=== PATIENT | female | born 1985 | race Caucasian/White ===

== ENCOUNTER 2017-03-01 07:41 | Observation (INO) | payer BC ==
[~2017-03-01 07:41] MED LIST: BUPIVACAINE 0.25% W/ EPI - 10 ML VIAL ONE; LIDOCAINE HCL 2 % 10 ML JELLY URO-JECT TOPICAL ONE; LIDOCAINE W/ SODIUM BICARB 0.5 ML SYR ONE; Lactated Ringers 1,000 ML PRIMARY IV ONE; Sodium Chloride 0.9% 100 ML IV ONE
[2017-03-01 08:00] LABS: BILIRUBIN,URINE NEGATIVE (NEG); CLARITY,URINE CLEAR (CLEAR); COLOR,URINE YELLOW; GLUCOSE, URINE (UA) NEGATIVE (NEG); NITRATE,URINE NEGATIVE (NEG); OCCULT BLOOD,URINE NEGATIVE (NEG); PH,URINE 5.5 (5.0-8.5); PROTEIN,URINE NEGATIVE (NEG); UROBILINOGEN,URINE 0.2 EU/dL (0.2)
[2017-03-01 08:02] LABS: URINE SAMPLE TYPE CLEAN CATCH URINE
[2017-03-01 08:11] LABS: URINE SPECIFIC GRAVITY - MAN 1.015
[2017-03-01 08:19] LABS: HEMATOCRIT 44.9 % (37.0-47.0); HEMOGLOBIN 16.3 g/dL (12.0-16.0); MEAN CORPUSCULAR HEMOGLOBIN 32.7 PG (27-31); MEAN CORPUSCULAR HGB CONC 36.3 g/dL (33-37); MEAN CORPUSCULAR VOLUME 90.2 FL (81-99); MEAN PLATELET VOLUME 8.7 FL (7.4-12.2); RED BLOOD COUNT 4.98 10^6/uL (4.20-5.40)
[2017-03-01 08:31] LABS: BLOOD UREA NITROGEN 15 mg/dL (7-22); BUN/CREATININE RATIO 16.66 (6-20); CALCIUM 9.5 mg/dL (8.7-10.7); EST GLOMERULAR FILTRATION > 60 (>60 ml/min/1.73m(2))
[2017-03-01] MEDS ORDERED: ROCURONIUM 10 MG/1 ML - 5 ML VIAL IVP ONE ×2 (09:11→10:26)
[2017-03-01] MEDS ORDERED: fentaNYL Inj 250 MCG/5 ML VIAL ONE (09:11)
[2017-03-01] MEDS ORDERED: MIDAZOLAM 5 MG/1 ML ONE (09:11)
[2017-03-01] MEDS ORDERED: LIDOCAINE MPF 2% - 5 ML (20 MG/1 ML) ONE (09:11)
[2017-03-01] MEDS ORDERED: ePHEDrine Inj 50 MG/ML AMP ONE (09:59)
[2017-03-01] MEDS ORDERED: HYDROmorphone 2 MG/1 ML ONE (10:20)
[2017-03-01] MEDS ORDERED: KETAMINE 100 MG/1 ML - 5 ML ONE (10:20)
[2017-03-01] MEDS ORDERED: Lactated Ringers 1,000 ML PRIMARY IV ONE (10:33)
[2017-03-01] MEDS ORDERED: Opium-Belladonna 60-16.2mg 1 EACH SUPP.RECT RECTAL ONE (10:55)
[2017-03-01] MEDS ORDERED: SUGAMMADEX SODIUM 200 MG/2 ML VIAL IV ONE (11:35)
[2017-03-01] MEDS ORDERED: ONDANSETRON 4 MG/2 ML VIAL ONE (11:38)
[2017-03-01] MEDS ORDERED: KETOROLAC 30 MG/1 ML VIAL ONE (11:38)
[2017-03-01] MEDS ORDERED: NORMAL SALINE 10 ML SYRINGE FLUSH IVP PRN ×2 (12:18→13:09)
[2017-03-01] MEDS ORDERED: HYDROmorphone 2 MG/1 ML IVP PRN (12:18)
[2017-03-01] MEDS ORDERED: fentaNYL Inj 100 MCG/2 ML VIAL IVP PRN (12:18)
[2017-03-01] MEDS ORDERED: ONDANSETRON 4 MG/2 ML VIAL IVP PRN (12:18)
[2017-03-01] MEDS ORDERED: Lactated Ringers 1,000 ML PRIMARY IV SCH ×2 (12:30→13:09)
--- NOTE | 2017-03-01 12:31 | OB.OP.NOTE ---
Operative Report Surgeon: Mason Manager Rn: Brett Wilkins MD Anesthesia Type: General Anesthesia Provider: Fito Finney CRNA Surgery Date: 03/01/17 Preoperative Diagnosis: Right ovarian complex cyst. Chronic pelvic pain. Menorrhagia. Dysmenorrhea. Persistent abnormal Pap smears and human papilloma virus. Patient desires definitive management with hysterectomy, bilateral salpingectomy, right oophorectomy and IUD removal Postoperative Diagnosis: Same Procedure: Robotic-assisted laparoscopic hysterectomy, bilateral salpingectomy, right oophorectomy, postoperative cystoscopy. IUD removal before hysterectomy Estimated Blood Loss (mL): 50 Fluids: 2600 LR. 50 mL EBL. 125 mL urine Complications: None apparent Findings at Surgery: Right ovarian complex cyst Normal appearing uterus but perhaps slightly boggy i.e. adenomyosis a possibility At the end of the surgery, the vaginal cuff appeared hemostatic, the right IP appeared hemostatic. Good spill from both ureteral orifices with cystoscopy and bladder appeared intact with cystoscopy During the surgery, there was no time when I thought that I was near the bowel to injure the bowel or the bladder. Indications for the Procedure: The patient is a 31-year-old with chronic right lower quadrant pelvic pain since May 2016 when she was diagnosed with a right ovarian simple cyst. Patient was then found to have a right ovarian complex cyst in January 2017. The patient continued to have significant pain on her right side. The patient also has a history of menorrhagia and dysmenorrhea and currently had an IUD in place and the patient also had cryotherapy for cervical dysplasia 2 years ago with a normal Pap smear last year but this year she had a negative Pap smear but positive HPV but negative HPV 16 and 18. Therefore, with the patient's persistent right lower quadrant pain and chronic pelvic pain since May 2016, the right ovarian complex cyst or mass, menorrhagia, dysmenorrhea, and persistent cervical dysplasia, the patient desired definitive management with a hysterectomy as well as a bilateral salpingectomy and a right oophorectomy. Description of Procedure: The patient was taken to the operating room after risks, benefits, alternatives and indication were discussed with the patient in detail. Consent forms have been signed previously. The patient underwent general endotracheal anesthesia without complication. The patient was placed in the dorsal lithotomy position in [facility]. The patient was prepped and draped sterilely. A timeout was completed and the patient and procedures were identified correctly. Attention was turned to the patient's perineum. I placed a Morley catheter in the patient's urethra and the Morley catheter drained clear yellow urine. I placed a weighted speculum in the patient's posterior vagina and a Derry anteriorly and the cervix was visualized. A single-tooth tenaculum was placed on the anterior lip of the cervix. I then sounded the patient's uterus and it was 9-1/2 cm. I used an 8 cm tip for the Dona uterine manipulator and a medium collar for the Fanny ring. The uterine manipulator was then placed around the patient's cervix with the tip inside the uterus and the balloon was insufflated with room air. Gloves and gowns were changed. Attention was then turned to the patient's abdomen. Because of the distance between the umbilicus and the pelvis and symphysis pubis, I decided that a supra umbilical incision would be made and 1/4 percent Marcaine with epinephrine was injected supraumbilically. The patient had previously had an abdominoplasty so there was an incision circumferentially around the umbilicus. I made my incision supraumbilically over the old scar site. Using the 10 mm trocar with the Visiport, we directly enter the patient's abdomen and then insufflated CO2 gas. The trocar was removed and the scope was placed back in and we were intra-abdominal. There did not appear to be any bowel adhesions around the umbilicus. We later looked with the scope in the lateral port and there were no bowel adhesions noted around the umbilicus or to the anterior abdominal wall at any place. The location for the right lateral port was then decided and one fourth percent Marcaine was injected and then a skin incision was made with a less than a centimeter and then under direct visualization the trocar and sleeve were introduced into the abdomen and the trocar was removed and the sleeve was left in place. The location for the left lateral port was then decided upon and 1/4% Marcaine was injected and then the skin incision was made with less than a centimeter incision and then under direct visualization the trocar and sleeve were introduced into the abdomen and the trocar was removed and the sleeve was left in place. The robot was then brought over to the field in a sterile fashion. The camera arm was hooked up to the supraumbilical port and #1 arm was hooked up to the right lateral and upper to arm was hooked up to the left lateral port. With the robot set up, I took off my gown and glove and went over the console. Photographs of the patient uterus and right ovary with a complex cyst and left ovary were taken. I then had my nurse orthodontic technician assistant place the vessel sealer #1 and gyrus bipolar and # 2 and I used the vessel sealer to ligate the right IP for the right oophorectomy and salpingectomy. I continued after the ligation of the right IP ligament to the right round ligament and used the vessel sealer to ligate the round ligament. I then used the vessel sealer to continue to dissect out the uterine vessels on the right side of the uterus and cervix. The vessels were skeletonized and bovied with the vessel sealer. A bladder flap was then created the patient's right side. I then switched sides and completed a left salpingectomy leaving the left ovary intact. After the left salpingectomy, the left round ligament was ligated using the vessel sealer. Then the uterine vessels on the left side of the uterus and cervix were skeletonized and ligated the vessel sealer. The vessel sealer was removed and in #1 port the monopolar scissors were placed and an #2 port the bipolar gyrus was placed. A bladder flap was created using the monopolar scissors and the bipolar gyrus. More the vessels on the right side and left side were skeletonized and bovied. I then started my vaginal incision at 12:00 keeping in mind were the Fanny ring was from the uterine manipulator. I made my vaginal incision and then I was able to visualize the Fanny ring. And then I continued my incision circumferentially until I had the incision completed 360. The hysterectomy, bilateral salpingectomy and right oophorectomy were then completed. The uterus was removed through the vaginal incision through the vagina and would be sent to pathology. I then had the suction care rep placed in port #1 and I suctioned any blood and then irrigated copiously. I then suction the fluid again. There was a bleeder on the vaginal cuff on the right side. At that point, I asked my TRAY SERVICE WORKER partner-Dr. Wilkins-to examine the vaginal cuff at the console and to allow for hemostasis. The bleeder was located and bovied. There appeared to be good hemostasis of the vaginal cuff. The vaginal cuff was then closed using 0-V lock suture starting on the patient's left side of the vaginal cuff and working to the right side. After the right angle was closed, the V lock suture was then brought back medially with 2 sutures to allow for good closure of the vaginal cuff. There was also good hemostasis. The vaginal cuff was irrigated and suctioned. The vaginal cuff was examined and there was good hemostasis. The right IP was examined and there was good hemostasis. Along the left side and left ovary was examined again and there was good hemostasis. The vaginal cuff was examined again and there was good hemostasis. The needle from the V lock suture was placed in the peritoneum to be removed later. All instruments were removed from the robotic arms. The robot was removed from the patient's operative table. A scope was placed in the lateral port and a grasper was placed in the supraumbilical port and the needle from the V lock suture was identified and removed under direct visualization. Additionally, the scope was placed in the lateral port and the supraumbilical worksite was examined. There were no bowel adhesions near the umbilicus. Actually, there were no bowel adhesions to the anterior abdominal wall anywhere. The vaginal cuff was examined again and there was good hemostasis. There was no bleeding. There were no hematomas. The procedure was completed. The scope and instruments were removed. The 3 ports sleeves were removed after CO2 gas was allowed to escape out of the abdomen. The supraumbilical incision site was first examined and 0 Vicryl suture on a UR 6 needle was used and John clamps using S clamps to view the fascia used to grasp the fascia and then the 0 Vicryl suture on a UR 6 needle was placed in a [id number] suture through the fascia anterior posterior 2 and then tied off. There appeared to be a good closure. 4-0 Monocryl suture was then used to close the subcutaneous areas of all 3 small laparoscopic sites and then 3-0 Stratafix suture was used to close all 3 laparoscopic sites. A cystoscopy was completed and both ureteral orifices were visualized. Indigo carmine is not available currently since it is not being manufactured currently. Therefore the ureteral jet was looked for and seen from both the right and left ureteral orifice. There was also a good bubble visualized in the bladder dome. Therefore the bladder was intact and both ureters appeared intact. A B&O suppository was placed in the patient's rectum. Steri-Strips and then dressings were placed over the 3 laparoscopic incision sites previously. The patient was awakened from her general endotracheal anesthesia and brought to the PACU in stable condition Sponge lap and needle counts were correct 2. Plan: 23 hour observation will be completed since the patient lives in [place], [place]. The patient will be observed on the [facility] floor.
[2017-03-01] MEDS ORDERED: Ondansetron ODT Tab 8 MG TAB PO PRN (13:09)
[2017-03-01] MEDS ORDERED: IBUPROFEN 800 MG TABLET PO PRN (13:09)
[2017-03-01] MEDS ORDERED: Lactated Ringers 2,000 ML PRIMARY IV ONE (13:31)
[2017-03-01] MEDS: KETOROLAC 15 MG/1 ML VIAL IVP PRN ×2 (15:00→23:14)
[2017-03-01] MEDS: HYDROcodone-APAP 5 MG -325 MG TABLET PO PRN ×2 (15:38→19:47)
[2017-03-01] MEDS ORDERED: fentaNYL Inj 250 MCG/5 ML VIAL IVP ONE (18:59)
[2017-03-01] MEDS: Promethazine Tab 25 MG TAB PO PRN (19:47)
--- NOTE | 2017-03-01 21:23 | PDOC(PROG) ---
Subjective Post Op Day: 0 Pain Management: PO (And IV) Morley Catheter: No Flatus: No Diet: Clear Liquids (Advancing as tolerated) Ambulating: Yes Concerns / Additional Information: The patient has been ambulating to the restroom. The patient does have some abdominal pain and had increased pain and received fentanyl 100 g IV. The patient is doing better now. The patient does tolerate hydrocodone better than oxycodone. The patient states that the pain from the hysterectomy is much more than when she had her cholecystectomy but much less than when she had her abdominoplasty. The patient wanted to take her home medications. 2 antidepressants and her levothyroxine. Objective - General General Appearance: POSITIVE: No Acute Distress, Cooperative (The patient is comfortable now that she received her narcotic medications for pain control.) - Abdomen Bowel Sounds: Present Abdominal Wound Assessment: Well Approximated (Dressings applied) Other Abdominal Exam Details: Abdomen is soft without guarding or rebound. Negative heel tap. Diffuse tenderness which is appropriate secondary to just having a robotic-assisted laparoscopic hysterectomy, bilateral salpingectomy, right oophorectomy. Assesstment / Plan Assessment / Plan: Postoperative day #0 status post robotic-assisted laparoscopic hysterectomy, bilateral salpingectomy, right oophorectomy and IUD removal and cystoscopy. The patient's vital signs are normal. No tachycardia. No acute abdomen by exam nor by looking at the patient. Plan: I increased the hydrocodone to 7.5 mg per tablet from the 5 mg per tablet. 1-2 tablets every 4 hours when necessary pain I encouraged the patient to take promethazine 25 mg by mouth every 6 hours for nausea with the medication but also this may help her symptoms and help her rest. The patient may take her medications from home. I will see the patient in the morning.
[2017-03-01] MEDS ORDERED: ABILIFY 2 MG PO SCH (21:30)
[2017-03-01] MEDS ORDERED: ESCITALOPRAM 10 MG TABLET PO SCH (21:30)
[2017-03-01] MEDS: HYDROcodone-APAP 7.5 MG-325 MG TABLET PO PRN (23:14)
[2017-03-02] MEDS: Promethazine Tab 25 MG TAB PO PRN (01:42)
[2017-03-02] MEDS: HYDROcodone-APAP 7.5 MG-325 MG TABLET PO PRN ×2 (03:35→07:32)
[2017-03-02 04:27] LABS: BASOPHILS # (AUTO) 0.02 10*3/UL; BASOPHILS % (AUTO) 0.2 % (0-1); EOSINOPHILS # (AUTO) 0.16 10*3/UL; EOSINOPHILS % (AUTO) 1.6 % (0-8); HEMATOCRIT 37.5 % (37.0-47.0); HEMOGLOBIN 12.9 g/dL (12.0-16.0); LYMPHOCYTES # (AUTO) 1.55 10*3/uL; MEAN CORPUSCULAR HEMOGLOBIN 31.8 PG (27-31); MEAN CORPUSCULAR HGB CONC 34.4 g/dL (33-37); MEAN CORPUSCULAR VOLUME 92.4 FL (81-99); MONOCYTES # (AUTO) 0.46 10*3/UL (0.3-0.8); MONOCYTES % (AUTO) 4.7 % (5-15); NEUTROPHILS # (AUTO) 7.66 10*3/UL; NEUTROPHILS % (AUTO) 77.6 % (50-80); RED BLOOD COUNT 4.06 10^6/uL (4.20-5.40)
[2017-03-02 04:35] LABS: PLATELET MORPHOLOGY COMMENT NORMAL MORPHOLOGY (NORM); RBC MORPHOLOGY COMMENT NORMAL MORPHOLOGY (NORM); WBC MORPHOLOGY COMMENT NORMAL MORPHOLOGY (NORM)
[2017-03-02 04:38] LABS: BLOOD UREA NITROGEN 8 mg/dL (7-22); CALCIUM 8.4 mg/dL (8.7-10.7); EST GLOMERULAR FILTRATION > 60 (>60 ml/min/1.73m(2))
[2017-03-02] MEDS: KETOROLAC 15 MG/1 ML VIAL IVP PRN (05:10)
[2017-03-02] MEDS ORDERED: LEVOTHYROXINE 75 MCG TABLET PO SCH (05:30)
[2017-03-02 08:13] VITALS: RESP 16; TEMP 98.1
--- NOTE | 2017-03-02 08:31 | PDOC(PROG) ---
Subjective Post Op Day: 1 Pain Management: PO (And IV Toradol) Morley Catheter: No Flatus: Yes Diet: Regular Ambulating: Yes Concerns / Additional Information: The patient is still having some pain. The patient stated that her oxycodone 7- 1/2 mg gave her good pain relief for 2 hours but then she had some pain. Her pain is much better now that was overnight. Positive flatus, patient is ambulating to the restroom. patient would like to go home Objective - General General Appearance: POSITIVE: No Acute Distress, Cooperative - Cardiovacular Cardiovascular Exam: POSITIVE: RRR Edema: No Pedal Edema Extremities: Negative Eladio's - Bilaterally - Respiratory Respiratory Exam: POSITIVE: Clear to Auscultation - Bilaterally - Abdomen Bowel Sounds: Present (All 4 quadrants) Abdominal Wound Assessment: Well Approximated (Dressings applied.) Other Abdominal Exam Details: Soft, no guarding or rebound. Appropriately tender. Negative heel tap Assesstment / Plan Assessment / Plan: Assessment: Postoperative day #1 status post robotic-assisted laparoscopic hysterectomy, bilateral salpingectomy, right oophorectomy, IUD removal, and cystoscopy. The patient's H&H had an appropriate drop and his 12 and 37 this morning. Creatinine was 0.8. The patient's vital signs are normal. Afebrile and normal pulses. Normal blood pressure. The patient has an abdominal exam consistent with just having the surgery listed above. Plan: Discharge home Ibuprofen 200 mg liquid capsules-4 capsules by mouth 3 times a day 5 days with food or milk then as needed Colace as needed. Patient has IBS and often has loose stools. Hydrocodone/Tylenol 7.5/325 one to 2 tablets every 4 hours initially today and then 1-2 tablets every 6-8 hours as needed. Pelvic rest-no vaginal intercourse-for 10 weeks The patient should follow-up with me next week. 03/06/2017 at 10:00 in the morning The patient should be given the usual postoperative instructions. The patient should go to the emergency room for fever, increasing abdominal pain that is not resolving, wound drainage, or not feeling well. The patient may resume her usual home medications at her discretion- Viberzi should be held currently secondary to the hydrocodone use.
== END 2017-03-02 09:41 | disposition home or self-care (01) ==
LOC: SDSC 07:41 → MED/SURG 13:02
PROVIDERS: ADMIT Obstetrics & Gynecology; ATTEND Obstetrics & Gynecology
DX: N83.201 Unspecified ovarian cyst, right side (principal); N92.0 Excessive and frequent menstruation with regular cycle; N94.6 Dysmenorrhea, unspecified
CPT/HCPCS: 36415; 52000; 58301; 58552; 80048 ×2; 81003; 84703; 85025; 85027; 96374; J0694; J1885; J2704; J3010 ×2; Q0169 ×2; J1170; J2001; J2250; J2405; J7050; J7120

== ENCOUNTER 2017-03-05 13:03 | Observation (INO) | payer BC ==
--- NOTE | 2017-03-05 15:08 | DI ---
CT ABD W/WO CN AND PELVIS W/W0,03/05/2017 1:06 PM: Clinical History: Postoperative abdominal pain Previous Exam: None at this facility. Findings: Multiple helically acquired CT images are obtained through the abdomen and pelvis following the intra venous administration of 75 cc of Isovue 300 as well as the oral administration of iodinated contrast . Images were obtained both before and after the administration of the intravenous contrast. There is some mild layering free fluid within the deep pelvis. There is a small focus of free air wit hin the nondependent portion of the urinary bladder. Patient is status post hysterectomy. There are some mild inflammatory changes in the deep pelvis most likely representing some postoperati ve fluid. The distal large bowel is decompressed, and therefore not well evaluated. There is one single focus o f free air within the deep pelvis. There is no mesenteric nor retroperitoneal lymphadenopathy. Skeletal structures are unremarkable. The lung bases are clear. The liver, spleen Impression: 1. A small amount of free fluid within the deep pelvis. This is an appropriate appearance for post op erative patient status post hysterectomy. 2. Small focus of free air within the urinary bladder most consistent with instrumentation during calos yesscia. 3. No acute intra-abdominal pathology.
--- NOTE | 2017-03-05 16:12 | PDOC ---
Past Medical History Substance Use Type: None Medication / Allergies Home Medications: Home Medications Medication Instructions Recorded Confirmed Type Aripiprazole [Abilify] 1 tab PO DAILY tab 02/21/17 03/01/17 History Eluxadoline [Viberzi] 1 tab PO BID tab 02/21/17 03/01/17 History Escitalopram Oxalate [Lexapro] 1 tab PO DAILY tab 02/21/17 03/01/17 History Escitalopram Oxalate [Lexapro] 1 tab PO DAILY tab 02/21/17 03/01/17 History Levothyroxine Sodium [Synthroid] 1 tab PO DAILY tab 02/21/17 03/01/17 History Spironolactone 1 tab PO DAILY tab 02/21/17 03/01/17 History Vitamin A 1 cap PO DAILY cap 02/21/17 03/01/17 History Misoprostol [Cytotec] 200 mcg VAGINAL QHS #1 tab 02/27/17 03/01/17 Clinic Scopolamine [Transderm-Scop] 1 patch TRANSDERM ONCE #1 patch 02/27/17 03/01/17 Clinic HYDROcodone/APAP 7.5/325 Tab 1 - 2 tab PO Q4H PRN #30 tab 03/02/17 Rx [[place] 7.5/325 Tab] Allergies/Adverse Reactions: Allergies Allergy/AdvReac Type Severity Reaction Status Date / Time No Known Allergies Allergy Verified 03/02/17 06:16 Exam - Vitals Vital Signs: Vital Signs Height 5 ft 9 in Assessment and Plan - Assessment / Plan Additional Assessment/Plan Details: Please see the patient's history below. The patient is a 31-year-old 013 status post a robotic-assisted laparoscopic hysterectomy, bilateral salpingectomy, right oophorectomy, IUD removal, and cystoscopy on 03/01/[address] [facility]. The patient states that she was doing well until yesterday which was postoperative day #3 when she started having increasing abdominal discomfort in her upper abdomen and also noted to be constipated for which the patient took 2 different doses of laxatives. Patient does not recall if she started taking the Colace that was suggested although she was hasn't is to take Colace since she has a history of irritable bowel syndrome with loose stools. The patient did take the laxatives. Today, the patient states that she has passed gas a little bit and feels like she has to pass gas but it is uncomfortable. The patient stated that several of her stools were black and tarry. This is new for the patient. No vaginal bleeding. No lightheadedness. The patient has not had any fever or chills. She is eating some food. When the patient got back from her CT scan of her abdomen and pelvis, the patient stated that she had 4 loose stools prior to the CT scan. She has a history of having loose stools and usually takes Viberzi which she cannot take right now since she is been taking the hydrocodone. The patient stated that her pain in her abdomen is on the right side of her umbilicus and just above her umbilicus. The patient also states that she has been getting bad dreams with the hydrocodone. She would like to switch to a different narcotic. On postop day #2 the patient was passing flatus and feeling well but then noticed increasing discomfort yesterday on postoperative day #3. The patient did not go to the emergency room. The patient presents today for evaluation since she called in and spoke with the nurse about her symptoms. The patient is a 31-year-old 013 LMP last week for 3 days since the patient had an IUD for menorrhagia placed a year ago who is status post a laparoscopic bilateral tubal ligation for contraception who presents today for a second opinion and an evaluation for a right ovarian complex cyst and chronic right lower quadrant pain since May 2016. The patient lives in [place], [place]. The patient's history is that she had a simple right ovarian cyst in May 2016 and then did not have a chance to have follow-up and then had acute pain in her right lower quadrant in January 2017 and was seen and evaluated and had a 4.6 cm complex right ovarian cyst that was thought to perhaps be a hemorrhagic cyst or other complex cyst. The patient made an appointment with me because she would like to have the right ovary removed. The patient states that she has pain with intercourse and just chronic pain with movement. She has not had a fever or chills. No increased vaginal bleeding since the Mirena IUD was placed. [employer] history with menarche age 11. Patient does have a history of abnormal Pap smears and she had cryotherapy 2 years ago and her last Pap smear was February 2016 and this was normal. Patient is due for a Pap smear today. Patient has a Mirena IUD for 1 year secondary to menorrhagia and dysmenorrhea. This is helped significantly. OB history significant for vaginal delivery 3 with the largest baby being 10 pounds. Patient with a third degree extension with that baby. Patient with occasional stress urinary incontinence perhaps 2 times per month. More if she has an upper respiratory infection. No urge symptoms. The patient does have leakage of liquid stool occasionally when she has diarrhea. No leakage of solid stool. No leakage of flatus. Past medical history significant for cystic acne, depression, anxiety, history of thyroid nodules, irritable bowel syndrome. Past surgical history tonsillectomy, appendectomy, cholecystectomy, laparoscopic tubal ligation, and an abdominoplasty and breast augmentation. Tobacco-patient quit in 2013. Alcohol occasional or rare about every 3 months. No drugs. Current medications-Lexapro, Abilify, Aldactone, Synthroid, Viberzi. Family history of cervical pre-cancer with hysterectomies. No breast cancer, colon cancer, ovarian cancer, endometrial cancer history ROS-Woman's Health Constitutional: COMPLAINS OF: Fatigue, DENIES: Fever Cardiovascular: DENIES: Chest pain, Palpitations Respiratory: DENIES: Cough, Shortness of breath Gastrointestinal: COMPLAINS OF: Abdominal pain, Black stools, Change in bowel habits (constipation and loose stools), Nausea, DENIES: Bloating, Bloody stools Genitourinary: DENIES: Abnormal vaginal bleeding, Abnormal/Painful Periods, Change in urinary stream, Dysmenorrhea, Dyspareunia, Dysuria, Hematuria, Incontinence, Nocturia, Postmenopausal, Sexual dysfunction, Urinary frequency, Urinary urgency, Vaginal discharge Endocrine: DENIES: Hot Flashes Hematologic/Lymphatic: DENIES: Bruising EXAM-Gynecology, General Constitutional General appearance: comfortable Nutritional Status: Normal Orientation: alert and oriented x3 Respiratory Respiratory effort: normal Auscultation: Bilateral: Normal Cardiovascular Rhythm: regular Heart sounds: NORMAL: S1, S2 Gastrointestinal Abdomen description: Normal Bowel sounds: LUQ: Hypoactive, LLQ: Hypoactive, RUQ: Hypoactive, RLQ: Hypoactive Abdominal palpation: Abdomen: Soft (no guarding or rebound) LUQ: nontender LLQ: nontender RUQ: nontender RLQ: nontender Periumbilical: nontender Epigastric: nontender Suprapubic: nontender Organomegaly/mass: Organomegaly: none Mass: None Hernia : Location: None Rectal exam: Rectum/sphincter: Normal Mass: None Psychiatric Mental status: Grossly normal Affect: normal Judgment: normal Assessment/Plan Assessment/Plan: 1. Postoperative abdominal pain The patient has postoperative abdominal pain with some black tarry stools and intermittent constipation and loose stools secondary to the narcotics use and also her irritable bowel syndrome. The patient was doing well on postoperative day #2 passing flatus but then on postoperative day #3 the patient started having increasing abdominal discomfort without fever or chills. The patient took laxative 2. The patient cannot recall directly if she has taken Colace which is a stool softener. I spoke with radiology and we determined a CT of her abdomen and pelvis with IV and oral contrast would be the best to examine the patient's abdomen. The patient will return to my office after the CT. Also a CBC, CMP and amylase and lipase and urinalysis and culture if indicated were ordered. Results of labs and CT scan showed a white count of 13.5 thousand but her H&H is normal and her CMP and lipase and amylase was normal. The CT scan showed a small amount of free fluid within the deep pelvis which was thought to be appropriate by the radiologist since the patient is status post a hysterectomy. There is also a small focus of free air within the urinary bladder and the patient did have a cystoscopy and Morley catheter prior to that. The cystoscopy at the time of surgery showed normal-size bill from both ureters and and a good normal bubble in the bladder dome signifying that the bladder was intact. When the patient arrived back to the office after her CT scan the patient stated that she had pain to the right and above her umbilicus. I reviewed the CT scan with the radiologist again and the trocar site was visible but there was no hematoma or fluid collection at that site. The patient's abdominal exam showed that the patient had bowel sounds in all 4 quadrants although they were hypoactive, they were present. The patient's abdomen was nondistended. The patient's abdomen was soft and appropriately tender but no guarding or rebound. Secondary to the patient's abdominal pain and black tarry stools as well as her elevated white count of 13.5 thousand, I would like to admit the patient for observation. Additionally, I would like to have general surgery evaluate the patient secondary to her black tarry stools. The patient does have a history of irritable bowel syndrome and frequent loose stools. The patient currently has dyschezia which is different for the patient. I would like to administer IV fluids and also pain medications and check another white count in the morning. New Diagnostics * CT Abdomen/Pelvis WWO Contrast * Complete Blood Count W/ Diff (CBCD) * Comprehensive Metabolic Panel (CMP) * Urinalysis w/Microscopic (UA Complete) * Urine Culture if indicated * Amylase * Lipase 2. Black tarry stools 3. Constipation due to pain medication 4. Loose stools
[2017-03-05] MEDS ORDERED: NORMAL SALINE 10 ML SYRINGE FLUSH IVP PRN (16:14)
[2017-03-05] MEDS ORDERED: LIDOCAINE W/ SODIUM BICARB 0.5 ML SYR SUBD PRN (16:14)
[2017-03-05] MEDS ORDERED: Promethazine Tab 25 MG TAB PO PRN (16:24)
[2017-03-05] MEDS ORDERED: LACTATED RINGERS 1000 ML PRIMARY IV SCH (16:30)
[2017-03-05] MEDS: HYDROmorphone 2 MG/1 ML IVP PRN ×2 (17:10→21:20)
--- NOTE | 2017-03-05 18:04 | PDOC(PROG) ---
Subjective Post Op Day: 4 Pain Management: IV and po Morley Catheter: No Flatus: Yes Diet: Clear Liquids Ambulating: Yes Concerns / Additional Information: The patient states that she is feeling slightly better now that she has received some IV pain medication. Slightly decreased abdominal pain Patient's loose stools currently have decreased in frequency. Objective - General General Appearance: POSITIVE: Cooperative, Mild Distress - Abdomen Abdominal Wound Assessment: Well Approximated - - Additional Details: Abdomen is soft without distention. No guarding or rebound. Assesstment / Plan Assessment / Plan: Assessment: Postoperative day #4 status post robotic-assisted laparoscopic hysterectomy, bilateral salpingectomy, right oophorectomy, cystoscopy, IUD removal who saw me earlier this morning for increase in abdominal pain since yesterday of black tarry stools. H&H was normal. White count was elevated at 13-1/[address] of her abdomen and pelvis with oral and IV contrast did not show any pathology. The patient does not have an acute abdomen Plan: The patient did get behind on her pain control today while she was seeing me in the clinic and getting her CT scan her abdomen and pelvis. Now that the patient has an IV in and has had some IV Dilaudid and Toradol and oral promethazine, the patient is doing slightly better. Gen. surgery will see her CBC in the morning I will check a C. difficile titer since she has so many loose stools. Patient does have a history of irritable bowel syndrome with mainly loose stools. No antibiotics currently
[2017-03-05] MEDS: KETOROLAC 15 MG/1 ML VIAL IVP PRN (19:15)
--- NOTE | 2017-03-05 19:56 | CONSULT ---
Consult Note - Consult Consult Date: 03/05/17 Reason for Consult: PreOp Consulation : General Surgery Requesting Physician: Dr. Cuevas Primary Care Provider: Carlos Cuevas MD - History of Present Illness History of Present Illness: This is 31-year-old female who is status post laparoscopic hysterectomy 4 days ago 03/01/2017. She is doing fine until yesterday. She started developing diarrhea. She also had black loose stools. She also developed periumbilical abdominal pain. Patient has a slightly elevated white count but otherwise labs were unremarkable. CT scan shows small amount of free fluid no free air. There is some air in the bladder but patient did have a cystoscopy. Patient states that she tried taking little bit of Pepto-Bismol but have spitted out because he she felt is rancid. This was prior to having the black stools. Past Medical History Surgical History: Patient's had a laparoscopic cholecystectomy. She's had abdominoplasty. Bilateral breast augmentation Tobacco Use: Never Smoker Substance Use Type: None Medication / Allergies Home Medications: Home Medications Medication Instructions Recorded Confirmed Type Aripiprazole [Abilify] 1 tab PO DAILY tab 02/21/17 03/01/17 History Eluxadoline [Viberzi] 1 tab PO BID tab 02/21/17 03/01/17 History Escitalopram Oxalate [Lexapro] 1 tab PO DAILY tab 02/21/17 03/01/17 History Escitalopram Oxalate [Lexapro] 1 tab PO DAILY tab 02/21/17 03/01/17 History Levothyroxine Sodium [Synthroid] 1 tab PO DAILY tab 02/21/17 03/01/17 History Spironolactone 1 tab PO DAILY tab 02/21/17 03/01/17 History Vitamin A 1 cap PO DAILY cap 02/21/17 03/01/17 History Misoprostol [Cytotec] 200 mcg VAGINAL QHS #1 tab 02/27/17 03/01/17 Clinic Scopolamine [Transderm-Scop] 1 patch TRANSDERM ONCE #1 patch 02/27/17 03/01/17 Clinic HYDROcodone/APAP 7.5/325 Tab 1 - 2 tab PO Q4H PRN #30 tab 03/02/17 Rx [[place] 7.5/325 Tab] Allergies/Adverse Reactions: Allergies Allergy/AdvReac Type Severity Reaction Status Date / Time No Known Allergies Allergy Verified 03/02/17 06:16 Exam - Vitals Vital Signs: Vital Signs Temperature 99.0 F Temperature Source Oral Pulse Rate [Pulse Oximeter] 94 Respiratory Rate 18 Blood Pressure [Right Arm] 119/71 Pulse Ox 100 Oxygen Delivery Method Room Air Height 5 ft 9 in Weight 96.706 kg - General General Appearance: POSITIVE: No Acute Distress, Cooperative - Eye Eye Exam: POSITIVE: PERRL, EOMI - Respiratory Respiratory Exam: POSITIVE: Clear to Auscultation - Bilaterally, Breathing Non Labored - Cardiovascular Cardiovascular Exam: POSITIVE: RRR, No Murmur - GI/Abdominal GI/Abdominal Exam: POSITIVE: Non Distended, Soft, No Hepatomegaly, No Splenomegaly Additional GI/Abdominal Exam Details: Abdomen is tender around the periumbilical area Assessment and Plan - Patient Problems (1) Abdominal pain of unknown etiology Current Visit: Yes Status: Acute - Assessment / Plan Additional Assessment/Plan Details: I talked to the patient about her abdominal pain. I do not think it's perforated bowel. I think we may begin with surgical pain. Her black stools may be hemorrhagic gastritis. Also, she could've gotten enough the milk of magnesia down to turn stools black. I talked to her about doing an EGD versus just treating her for stress gastritis. She would like to be treated for the stress gastritis and set have an EGD. Therefore, I am going to start Protonix 40 mg once a day. Also like to give her an incentive spirometer.
[2017-03-05] MEDS: PANTOPRAZOLE 40 MG TABLET PO SCH (20:51)
[2017-03-05] MEDS ORDERED: ACETAMINOPHEN 325 MG TABLET PO ONE (22:45)
[2017-03-05] MEDS: Ertapenem Inj 1 GM in Sodium Chloride 0.9% 100 ML IV SCH (23:08)
[2017-03-05 23:13] LABS: BASOPHILS # (AUTO) 0.03 10*3/UL; BASOPHILS % (AUTO) 0.2 % (0-1); EOSINOPHILS # (AUTO) 0.39 10*3/UL; HEMATOCRIT 35.6 % (37.0-47.0); HEMOGLOBIN 12.4 g/dL (12.0-16.0); LYMPHOCYTES # (AUTO) 1.51 10*3/uL; MEAN CORPUSCULAR HEMOGLOBIN 31.5 PG (27-31); MEAN CORPUSCULAR HGB CONC 34.8 g/dL (33-37); MEAN CORPUSCULAR VOLUME 90.4 FL (81-99); MEAN PLATELET VOLUME 8.8 FL (7.4-12.2); MONOCYTES # (AUTO) 0.82 10*3/UL (0.3-0.8); MONOCYTES % (AUTO) 6.3 % (5-15); NEUTROPHILS # (AUTO) 10.15 10*3/UL; NEUTROPHILS % (AUTO) 78.6 % (50-80); PLATELET MORPHOLOGY COMMENT NORMAL MORPHOLOGY (NORM); RBC MORPHOLOGY COMMENT NORMAL MORPHOLOGY (NORM); RED BLOOD COUNT 3.94 10^6/uL (4.20-5.40); WBC MORPHOLOGY COMMENT NORMAL MORPHOLOGY (NORM)
[2017-03-06] MEDS: KETOROLAC 15 MG/1 ML VIAL IVP PRN (01:00)
[2017-03-06] MEDS: HYDROmorphone 2 MG/1 ML IVP PRN ×2 (02:17→07:31)
[2017-03-06 05:17] LABS: BASOPHILS # (AUTO) 0.04 10*3/UL; BASOPHILS % (AUTO) 0.3 % (0-1); EOSINOPHILS # (AUTO) 0.47 10*3/UL; HEMOGLOBIN 13.2 g/dL (12.0-16.0); LYMPHOCYTES # (AUTO) 2.11 10*3/uL; MEAN CORPUSCULAR HEMOGLOBIN 31.7 PG (27-31); MEAN CORPUSCULAR HGB CONC 34.7 g/dL (33-37); MEAN CORPUSCULAR VOLUME 91.1 FL (81-99); MEAN PLATELET VOLUME 8.9 FL (7.4-12.2); MONOCYTES # (AUTO) 0.71 10*3/UL (0.3-0.8); MONOCYTES % (AUTO) 6.1 % (5-15); NEUTROPHILS # (AUTO) 8.25 10*3/UL; NEUTROPHILS % (AUTO) 71.1 % (50-80); RED BLOOD COUNT 4.17 10^6/uL (4.20-5.40)
[2017-03-06 05:24] LABS: PLATELET MORPHOLOGY COMMENT NORMAL MORPHOLOGY (NORM); RBC MORPHOLOGY COMMENT NORMAL MORPHOLOGY (NORM); WBC MORPHOLOGY COMMENT NORMAL MORPHOLOGY (NORM)
[2017-03-06 05:29] LABS: BLOOD UREA NITROGEN 5 mg/dL (7-22); BUN/CREATININE RATIO 6.25 (6-20); CALCIUM 8.9 mg/dL (8.7-10.7); EST GLOMERULAR FILTRATION > 60 (>60 ml/min/1.73m(2)); SERUM ALBUMIN 3.6 g/dL (3.5-4.8)
--- NOTE | 2017-03-06 07:44 | PDOC(PROG) ---
Subjective Post Op Day: 5 Pain Management: IV Morley Catheter: No Flatus: Yes Diet: Clear Liquids Ambulating: Yes Concerns / Additional Information: The patient states that she is feeling a little bit better this morning. She is passing flatus but sometimes she has to force it or she feels as though she has to pass flatus and then it does not past for a little while but eventually passes. The patient has been receiving dilaudid IV every 4 hours and Toradol. Patient states that her [id number] improved this morning and she would rated a 4 out of 10 with her last dose of dilaudid about 4 hours ago. The patient has been ambulating to the restroom. The patient is hungry and would like to eat. Objective - General General Appearance: POSITIVE: No Acute Distress, Cooperative - Cardiovacular Cardiovascular Exam: POSITIVE: RRR Extremities: Negative Eladio's - Bilaterally - Respiratory Respiratory Exam: POSITIVE: Clear to Auscultation - Bilaterally - Abdomen Bowel Sounds: Hypoactive (But present all 4 quadrants) Abdominal Wound Assessment: Well Approximated, Steri Strips Applied Other Abdominal Exam Details: Steri-Strips applied. Incisions were examined yesterday and no evidence of infection. Minimal to no ecchymosis. Positive tender to palpation periumbilically without mass. No guarding or rebound. Negative heel tap Assesstment / Plan Assessment / Plan: Assessment: Postoperative day #5 status post robotic-assisted laparoscopic hysterectomy, bilateral salpingectomy and right oophorectomy The patient was admitted yesterday with increasing periumbilical pain and a white count of 13-1/[address] scan did not show any abscess and was with oral and IV contrast and there was not evidence of a small bowel perforation. Last evening, the patient had an elevated temperature of 100.5 then 101. A CBC was obtained and the white count had slightly decreased to 12.93 and this morning her white count is 11.6 thousand. Her H&H is stable. Secondary to the patient having another temperature of [address] Garsia saw the patient when she had a temperature of 100.5, blood cultures were obtained and then the patient was started on Ertapenem 1 g IV every 24 hours. This morning, the patient just now had a temperature of 100.1. Other vital signs are normal. The patient does have hypoactive bowel sounds and the patient's discomfort is improved. I am not certain of the etiology of the patient's fever currently. The surgery actually went relatively well and there was no evidence of a bowel injury or potential bowel injury during the case. The supraumbilical trocar insertion was introduced easily under direct visualization and the abdomen was insufflated with CO2 gas. With the other trochars in place, the camera was placed in the lateral trocar to look at the periumbilical trocar site and there were no bowel adhesions to the periumbilical area. There were no bowel adhesions to the anterior abdominal wall noted. During the surgery, I did not have to manipulate the bowel very much at all and the bowel did not appear close to the surgery sites at any time. Of course, with the patient's symptoms currently, I have to consider a bowel injury and that is one of the reasons I consulted Dr. Garsia. This morning, the patient does have hypoactive bowel sounds and the white count is minimally decreased from yesterday which is a good sign although the patient still has a temperature of 100.1. The patient does not appear septic. Another good sign is that the patient is hungry this morning. The patient still is requiring Dilaudid 2 mg every 4 hours. But her pain is improved compared to yesterday the patient states. Plan: I will speak to the general surgeon-Dr. Garsia-this morning about the patient. The patient will remain in the hospital at least until tomorrow. The patient currently was on observation status but I will convert her to inpatient status after speaking with the nurse this morning. Continue ertapenem 1 g IV every 24 hours Check a CBC in the morning if not earlier Continue to observe the patient's vital signs Await blood culture preliminary findings Continue IV fluids. The patient's IV was changed this morning from an antecubital site to another lower site on her arm.
[2017-03-06] MEDS: PANTOPRAZOLE 40 MG TABLET PO SCH (08:41)
[2017-03-06] MEDS: HYDROcodone-APAP 5 MG -325 MG TABLET PO PRN ×3 (11:07→18:54)
[2017-03-06] MEDS: Lactated Ringers 1,000 ML PRIMARY IV SCH ×2 (11:37→19:57)
--- NOTE | 2017-03-06 12:59 | PDOC(PROG) ---
Subjective Post Op Day: 5 Pain Management: PO Morley Catheter: No Flatus: Yes Diet: Clear Liquids Ambulating: Yes Concerns / Additional Information: The patient took a shower and feels a little bit better. The patient would like to eat. Positive flatus. The patient relates that her had a viral illness with body aches and fever and chills the day after they got back from the hospital last week. The patient's had loose stools 1 or 2 times. Objective - General General Appearance: POSITIVE: No Acute Distress, Cooperative - Cardiovacular Cardiovascular Exam: POSITIVE: RRR Extremities: Negative Eladio's - Bilaterally - Respiratory Respiratory Exam: POSITIVE: Clear to Auscultation - Bilaterally - Abdomen Other Abdominal Exam Details: Positive bowel sounds all 4 quadrants. Slight tenderness without guarding or rebound in all 4 quadrants. Negative heel tap. Assesstment / Plan Assessment / Plan: Assessment: Postoperative #5 with abdominal pain and low-grade fever. White count did decrease from yesterday until this morning. Cultures pending. The patient has very good bowel sounds now and is passing flatus. The patient is hungry. Plan: Regular diet Chest x-ray PA and lateral to ensure there is not pneumonia causing the fever Continue to observe closely CBC in the morning Continue ertapenem every 24 hours
--- NOTE | 2017-03-06 14:20 | DI ---
PA /LATERAL CHEST X-RAY, 03/06/2017 12:56 PM : Clinical History: Postoperative fever. Previous Exam: None at this facility. There is no acute soft tissue or bony abnormality. Heart size is normal. Lungs are clear. Mediastinal structures are normal. There are no pulmonary nodules. IMPRESSION: Normal chest x-ray.
[2017-03-06] MEDS: Ertapenem Inj 1 GM in Sodium Chloride 0.9% 100 ML IV SCH (22:34)
[2017-03-07] MEDS: HYDROcodone-APAP 5 MG -325 MG TABLET PO PRN ×2 (00:29→05:12)
[2017-03-07] MEDS: Lactated Ringers 1,000 ML PRIMARY IV SCH (05:15)
[2017-03-07 05:44] LABS: BASOPHILS # (AUTO) 0.04 10*3/UL; BASOPHILS % (AUTO) 0.5 % (0-1); EOSINOPHILS # (AUTO) 0.48 10*3/UL; EOSINOPHILS % (AUTO) 5.7 % (0-8); HEMATOCRIT 33.2 % (37.0-47.0); HEMOGLOBIN 11.2 g/dL (12.0-16.0); LYMPHOCYTES # (AUTO) 1.84 10*3/uL; MEAN CORPUSCULAR HGB CONC 33.7 g/dL (33-37); MEAN PLATELET VOLUME 8.7 FL (7.4-12.2); MONOCYTES # (AUTO) 0.71 10*3/UL (0.3-0.8); MONOCYTES % (AUTO) 8.4 % (5-15); NEUTROPHILS # (AUTO) 5.38 10*3/UL; NEUTROPHILS % (AUTO) 63.2 % (50-80); RED BLOOD COUNT 3.61 10^6/uL (4.20-5.40)
[2017-03-07 05:48] LABS: PLATELET MORPHOLOGY COMMENT NORMAL MORPHOLOGY (NORM); RBC MORPHOLOGY COMMENT NORMAL MORPHOLOGY (NORM); WBC MORPHOLOGY COMMENT NORMAL MORPHOLOGY (NORM)
[2017-03-07 05:56] LABS: BLOOD UREA NITROGEN 6 mg/dL (7-22); CALCIUM 8.6 mg/dL (8.7-10.7); EST GLOMERULAR FILTRATION > 60 (>60 ml/min/1.73m(2))
[2017-03-07 06:43] VITALS: RESP 17
[2017-03-07] MEDS: PANTOPRAZOLE 40 MG TABLET PO SCH (08:01)
--- NOTE | 2017-03-07 09:01 | PDOC(PROG) ---
Subjective Post Op Day: 6 Pain Management: PO Morley Catheter: No Flatus: Yes Diet: Regular Ambulating: Yes Concerns / Additional Information: The patient states that she feels well this morning. Positive flatus. No abdominal pain. Tolerating a regular diet well. The patient would like to go home this morning. Objective - General General Appearance: POSITIVE: No Acute Distress, Cooperative - Cardiovacular Cardiovascular Exam: POSITIVE: RRR Edema: No Pedal Edema Extremities: Negative Eladio's - Bilaterally - Respiratory Respiratory Exam: POSITIVE: Clear to Auscultation - Bilaterally - Abdomen Bowel Sounds: Present (All 4 quadrants) Abdominal Wound Assessment: Well Approximated (Steri-Strips in place), Asymptomatic Other Abdominal Exam Details: No guarding or rebound, soft, appropriately tender from surgery but minimal tenderness. Negative heel tap Assesstment / Plan Assessment / Plan: Assessment: Postoperative day #6 with readmission on postoperative day #4 status post robotic-assisted laparoscopic hysterectomy, bilateral salpingectomy , right oophorectomy, IUD removal, cystoscopy. White blood cell count has decreased to 8.5 thousand from 13.5 thousand. H&H is 11 and 33 which did decrease somewhat but I do not believe the patient had a bleed. Hopefully this is just re-equilibration over the past several days status post her surgery with the patient being dry the other day when she was admitted. When I contacted the nurse yesterday around 1130 hrs. or noon, the nurse informed me that the patient had had a temperature of 101.4 that morning. That temperature is not recorded in the vital signs. The patient's last temperature above 100.4 was 24 hours ago. Plan: Hep lock IV Since the patient would like to go home and the patient is doing much better, the patient will be discharged home. Since the patient has had 2 doses of ertapenem, I will continue Augmentin by mouth twice a day I did speak with the patient about C. difficile and if the patient has increased loose stools, the patient should contact us. We also discussed that the patient did not have a known abscess on CT scan but the patient may have another infection that the ertapenem treated and therefore that was the reason for the Augmentin to be continued for a total of 7 days of antibiotics. The patient should follow-up to see me next week Augmentin 875 mg 1 by mouth twice a day for 5 days #10 and no refills The patient should take ibuprofen 800 mg 3 times a day for the next 5 days then as needed The patient does have hydrocodone 7-1/2 mg (two left) and she may take 1/2-1 tablet every 6 hours of that. Additionally, I will prescribe hydrocodone 5/325 and she may take 1-2 tablets every 6 hours when necessary pain #20 and no refills. Colace 100 mg 1 by mouth twice a day. The patient should take this while she is taking the narcotic and for 1 day afterwards. Pelvic rest for at least 8-10 weeks from surgery The patient should return for increasing pain, fever, wound drainage or other problems. The patient Steri-Strips should be changed today The patient will be given the usual discharge instructions.
--- NOTE | 2017-03-07 09:37 | DCSUMMARY ---
Hospitalization Summary Admit Date: 03/05/17 Discharge Date: 03/07/17 Primary Diagnosis:: abdominal pain and black tarry stools Secondary Diagnosis:: The patient was status post robotic-assisted laparoscopic hysterectomy, bilateral salpingectomy, right oophorectomy, IUD removal, cystoscopy who presented with abdominal pain and black tarry stools and loose stools and then was admitted for observation and then became febrile once admitted. Hospital Course: The patient was status post robotic-assisted laparoscopic hysterectomy, bilateral salpingectomy, right oophorectomy, IUD removal, cystoscopy who had her surgery completed on 03/01/2017 and was doing well on postoperative day #2 when I contacted her. However on postoperative day #3, the patient started developing abdominal pain and some loose stools. The patient called my office on postoperative day #4 and I saw the patient. The patient's CBC showed a white count of 13-1/2 thousand, and the CT scan did not show a specific abscess or fluid collections. The patient was admitted for observation. The patient then spiked a temperature of 100.5 and then 101. Blood cultures were obtained. And a CBC was obtained which the white count slightly lower than the 13-1/2 thousand. The patient was started on IV ertapenem 1 g IV every 24 hours. I did ask our general surgeon, Dr. Garsia, to evaluate the patient on the day of admission. He did not think that there was a bowel perforation or at least a small bowel perforation secondary to the CT and the patient's exam. On stopped her day #5 which was yesterday, the patient started feeling slightly better although still had some periumbilical discomfort. The patient was hungry yesterday and the patient did have lunch and dinner and tolerated this well. The patient did have a temperature spike of 101.4 and morning yesterday morning. Of note, the patient did have a negative C. difficile and a chest x-ray was also obtained and this was normal. This morning, the patient was feeling well. Her white count had dropped to 8.5 thousand and the patient was feeling very well. Patient wanted to go home. Patient will be discharged later this morning when she is afebrile 24 hours. Assessment: Postoperative day #6 with readmission on postoperative day #4 status post robotic-assisted laparoscopic hysterectomy, bilateral salpingectomy , right oophorectomy, IUD removal, cystoscopy. White blood cell count has decreased to 8.5 thousand from 13.5 thousand. H&H is 11 and 33 which did decrease somewhat but I do not believe the patient had a bleed. Hopefully this is just re-equilibration over the past several days status post her surgery with the patient being dry the other day when she was admitted. When I contacted the nurse yesterday around 1130 hrs. or noon, the nurse informed me that the patient had had a temperature of 101.4 that morning. That temperature is not recorded in the vital signs. The patient's last recorded temperature above 100.4 was 24 hours ago. Addendum: The nurse that works yesterday was contacted and late morning the patient did have a picture of 101.4. Plan: Hep lock IV Since the patient would like to go home and the patient is doing much better, the patient will be discharged home. Since the patient has had 2 doses of ertapenem, I will continue Augmentin by mouth twice a day I did speak with the patient about C. difficile and if the patient has increased loose stools, the patient should contact us. We also discussed that the patient did not have a known abscess on CT scan but the patient may have another infection that the ertapenem treated and therefore that was the reason for the Augmentin to be continued for a total of 7 days of antibiotics. The patient will be discharged home later this morning when she is afebrile 24 hours. The patient should follow-up to see me next week Augmentin 875 mg 1 by mouth twice a day for 5 days #10 and no refills The patient should take ibuprofen 800 mg 3 times a day for the next 5 days then as needed The patient does have hydrocodone 7-1/2 mg (two left) and she may take 1/2-1 tablet every 6 hours of that. Additionally, I will prescribe hydrocodone 5/325 and she may take 1-2 tablets every 6 hours when necessary pain #20 and no refills. Colace 100 mg 1 by mouth twice a day. The patient should take this while she is taking the narcotic and for 1 day afterwards. Pelvic rest for at least 8-10 weeks from surgery The patient should return for increasing pain, fever, wound drainage or other problems. The patient Steri-Strips should be changed today The patient will be given the usual discharge instructions. The patient has expressed understanding of the above. Patient would like to go home. Patient will be discharged later this morning if she is afebrile. Exam - Vitals Vital Signs: Vital Signs Temperature 98.2 F Temperature Source Oral Pulse Rate [Pulse Oximeter] 70 Respiratory Rate 17 Blood Pressure [Right Arm] 106/66 Pulse Ox 97 Oxygen Delivery Method Room Air Height 5 ft 9 in Weight 217 lb 6.4 oz
[2017-03-07 11:01] VITALS: TEMP 97.7
== END 2017-03-07 11:18 | disposition home or self-care (01) ==
LOC: CT 13:03 → MED/SURG 16:14
PROVIDERS: ADMIT Obstetrics & Gynecology; ATTEND Obstetrics & Gynecology
DX: K91.89 Other postprocedural complications and disorders of digestive system (principal); K59.03 Drug induced constipation; K92.1 Melena; R10.9 Unspecified abdominal pain
CPT/HCPCS: 36415 ×3; 71020; 74178; 80053 ×2; 85025 ×3; 87040; 87493; 94150 ×3; Q0169; J1170; J1335; J1885; J7050; J7120

== ENCOUNTER → 2017-03-05 | Outpatient (CLI) | payer BC ==
[2017-03-05 13:07] LABS: BILIRUBIN,URINE NEGATIVE (NEG); CLARITY,URINE CLEAR (CLEAR); COLOR,URINE YELLOW; GLUCOSE, URINE (UA) NEGATIVE (NEG); NITRATE,URINE NEGATIVE (NEG); OCCULT BLOOD,URINE SMALL (NEG); PH,URINE 5.5 (5.0-8.5); PROTEIN,URINE NEGATIVE (NEG); UROBILINOGEN,URINE 0.2 mg/dL (0.2)
[2017-03-05 13:08] LABS: BASOPHILS # (AUTO) 0.04 10*3/UL; BASOPHILS % (AUTO) 0.3 % (0-1); EOSINOPHILS # (AUTO) 0.44 10*3/UL; EOSINOPHILS % (AUTO) 3.2 % (0-8); HEMATOCRIT 38.8 % (37.0-47.0); HEMOGLOBIN 13.5 g/dL (12.0-16.0); LYMPHOCYTES # (AUTO) 1.83 10*3/uL; MEAN CORPUSCULAR HEMOGLOBIN 31.9 PG (27-31); MEAN CORPUSCULAR HGB CONC 34.8 g/dL (33-37); MEAN CORPUSCULAR VOLUME 91.7 FL (81-99); MEAN PLATELET VOLUME 8.7 FL (7.4-12.2); MONOCYTES # (AUTO) 0.76 10*3/UL (0.3-0.8); MONOCYTES % (AUTO) 5.6 % (5-15); NEUTROPHILS # (AUTO) 10.47 10*3/UL; NEUTROPHILS % (AUTO) 77.2 % (50-80); PLATELET MORPHOLOGY COMMENT NORMAL MORPHOLOGY (NORM); RBC MORPHOLOGY COMMENT NORMAL MORPHOLOGY (NORM); RED BLOOD COUNT 4.23 10^6/uL (4.20-5.40); WBC MORPHOLOGY COMMENT NORMAL MORPHOLOGY (NORM)
[2017-03-05 13:11] LABS: SQUAMOUS EPITHELIAL CELL,UR FEW; URINE SAMPLE TYPE VOIDED SPECIMEN
[2017-03-05 13:15] LABS: BLOOD UREA NITROGEN 7 mg/dL (7-22); BUN/CREATININE RATIO 8.75 (6-20); EST GLOMERULAR FILTRATION > 60 (>60 ml/min/1.73m(2)); LIPASE 11 IU/L (23-300); SERUM ALBUMIN 3.9 g/dL (3.5-4.8)
== END ==
LOC: MOB LAB 12:49
PROVIDERS: ATTEND Obstetrics & Gynecology
DX: G89.18 Other acute postprocedural pain (principal); R10.84 Generalized abdominal pain; K92.1 Melena; R53.83 Other fatigue
CPT/HCPCS: 36415; 80053; 81001; 82150; 83690; 85025